=== PATIENT | female | born 1995 | race Caucasian/White ===

== ENCOUNTER 2017-03-06 00:36 | Observation (INO) | payer OTHER ==
[2017-03-06] MEDS ORDERED: NS 1,000 ML IV ONE (00:44)
[2017-03-06] MEDS ORDERED: ONDANSETRON 4 MG/2 ML VIAL IVP ONE (00:44)
--- NOTE | 2017-03-06 00:44 | EDPHY ---
H & P Stated Complaint: AP, n/v/d x 2 days. no recent travel or fever. HPI/ROS: HPI CHIEF COMPLAINT: Abdominal pain, nausea, vomiting, diarrhea HISTORY OF PRESENT ILLNESS: This patient 22-year-old female, presents emergency room nausea, vomiting, diarrhea and abdominal pain. Patient tells me that past 48 hours she has had increasing worsening sharp stabbing abdominal pain right lower quadrant periumbilical. At times radiates outward. She has associated nausea vomiting and diarrhea with this. Tells me that she had nausea and 1 episode of vomiting. Nonbilious. Nonbloody. Also has had 3-4 episodes of nonbloody diarrhea. Denies fever. Chest pain. Denies blood in her stool. Blood in her vomit. Acute emergency room today she could not sleep and had ongoing abdominal pain. Past Medical History: No medical history Past Surgical History: No surgical history Social History: Denies daily use of drugs alcohol tobacco products Family History: Noncontributory ROS REVIEW OF SYSTEMS: A comprehensive 10 point review of systems is otherwise negative aside from elements mentioned in the history of present illness. Exam Constitutional appears well nontoxic triage nursing summary reviewed, vital signs reviewed, awake/alert. Eyes normal conjunctivae and sclera, EOMI, PERRLA. HENT normal inspection, atraumatic, moist mucus membranes, no epistaxis, neck supple/ no meningismus, no raccoon eyes. Respiratory clear to auscultation bilaterally, normal breath sounds, no respiratory distress, no wheezing. Cardiovascular rate normal, regular rhythm, no murmur, no edema, distal pulses normal. Gastrointestinal soft, tender palpation periumbilical right lower quadrant, no peritoneal signs , no rebound, no guarding, normal bowel sounds, no distension, no pulsatile mass. Genitourinary no CVA tenderness. Musculoskeletal no midline vertebral tenderness, full range of motion, no calf swelling, no tenderness of extremities, no meningismus, good pulses, neurovascularly intact. Skin pink, warm, & dry, no rash, skin atraumatic. Neurologic awake, alert and oriented x 3, AAOx3, moves all 4 extremities equally, motor intact, sensory intact, CN II-XII intact, normal cerebellar, normal vision, normal speech. Psychiatric normal mood/affect. Heme/Lymph/Immune no lymphadenopathy. Differential diagnosis includes but is not limited to and in no particular order : Bowel obstruction, appendicitis, gallbladder disease, diverticulitis, colitis , enteritis, perforated viscus, gastritis, GERD, esophagitis, urinary tract infection, pyelonephritis, kidney stones Medical Decision Making: Plan for this patient IV establishment, IV fluids normal saline, IV Zofran for nausea, check abdominal blood work including lipase , LFTs, CT scan abdomen pelvis with IV contrast rule out acute appendicitis. Re-evaluation: CT scan of the abdomen pelvis with IV contrast The results of the study are shows free fluid pancreatic space, paracolic gutter no significant pelvic inflammation The study was read by Dr. Bruno.. I viewed the images myself on the PACS system. Normal appendix. 0221am: I DID REVIEW THIS PATIENT'S CT SCAN WITH THE PATIENT AND BLOOD WORK. SHE DOES TELL ME IT HURTS AFTER SHE DRINKS OR EATS. I DO THINK THAT SHE MAY HAVE A DUODENAL ULCER. I did talk to surgery Dr. Cooper's we discussed the case. Given that there is no free air in she does not peritoneal signs he does not feel that there is a surgical emergency. We did feel that this patient benefit from hospitalization with PPIs bowel rest IV fluids and GI to see. I will admit her to the hospitalist service given that she probably has duodenitis or duodenal ulcer. There is no evidence that this perforation given no free air. I updated the patient she is fine with this plan. I have ordered her another 0.5 mg IV Dilaudid, IV Protonix and IV famotidine. Patient does tell me that she has had Tequila this weekend multiple shots on March 04. But tells me that she has had nausea vomiting abdominal pain prior to this. She does tell me that hurts when she eats and drinks. Denies black tarry stools or vomiting blood. Denies blood in her stool. Given that she has edema around the duodenum and pancreas possible small amount of free fluid ongoing abdominal pain with nausea I will admit the patient for IV acids, and GI to see and evaluate. Dr. Marin has accepted. 0232AM: This time she appears well nontoxic afebrile vital signs are stable H& H are stable. Do not feel she has a surgical abdomen or any peritoneal signs. No indication for emergent surgery. However will need to be admitted for observation GI to see. Source: Patient - Personal History LMP (Females 10-55): 1-7 Days Ago Current Tetanus/Diphtheria Vaccine: Yes Current Tetanus Diphtheria and Acellular Pertussis (TDAP): Yes Tetanus Vaccine Date: 2015 - Medical/Surgical History Hx Asthma: No Hx Chronic Respiratory Disease: No Hx Diabetes: No Hx Cardiac Disease: No Hx Renal Disease: No Hx Cirrhosis: No Hx Alcoholism: No Hx HIV/AIDS: No Hx Splenectomy or Spleen Trauma: No Other PMH: hip surgeries x 7 - Social History Smoking Status: Never smoked Constitutional: Initial Vital Signs Temperature (C) 36.5 C 03/06/17 00:39 Heart Rate 85 03/06/17 00:39 Respiratory Rate 16 03/06/17 00:39 Blood Pressure 108/56 L 03/06/17 00:39 O2 Sat (%) 99 03/06/17 00:39 O2 Delivery Mode Room Air Allergies/Adverse Reactions: No Known Allergies Allergy (Unverified 03/06/17 00:39) Home Medications: Medication Instructions Recorded Chateal-28 Tablet 03/06/17 Medical Decision Making - Data Points Laboratory Results: Laboratory Results 03/06/17 01:00 03/06/17 01:00 03/06/17 03/06/17 03/06/17 01:00 01:00 01:00 WBC RBC Hgb Hct MCV MCH MCHC RDW Plt Count MPV Neut % (Auto) Lymph % (Auto) [place] % (Auto) Eos % (Auto) Baso % (Auto) Nucleat RBC Rel Count Absolute Neuts (auto) Absolute Lymphs (auto) Absolute Monos (auto) Absolute Eos (auto) Absolute Basos (auto) Absolute Nucleated RBC Immature Gran % Immature Gran # Sodium 144 mEq/L mEq/L (134-144) Potassium 3.9 mEq/L mEq/L (3.5-5.2) Chloride 110 mEq/L mEq/L (97-110) Carbon Dioxide 21 mEq/l L mEq/l (22-31) Anion Gap 13 mEq/L mEq/L (8-16) BUN 11 mg/dL mg/dL (7-23) Creatinine 0.9 mg/dL mg/dL (0.6-1.0) Estimated GFR > 60 Glucose 89 mg/dL mg/dL (70-100) Calcium 9.2 mg/dL mg/dL (8.5-10.4) Total Bilirubin 0.8 mg/dL mg/dL (0.1-1.4) Conjugated Bilirubin 0.3 mg/dL mg/dL (0.0-0.5) Unconjugated Bilirubin 0.5 mg/dL mg/dL (0.0-1.1) AST 23 IU/L IU/L (14-46) ALT 37 IU/L IU/L (9-52) Alkaline Phosphatase 54 IU/L IU/L (38-126) Total Protein 7.2 g/dL g/dL (6.3-8.2) Albumin 4.2 g/dL g/dL (3.5-5.0) Lipase 76.0 IU/L IU/L (23-300) Beta HCG, Qual NEGATIVE Urine Color YELLOW Urine Appearance HAZY Urine pH 6.0 (5.0-7.5) Ur Specific [place] 1.029 (1.002-1.030) Urine Protein NEGATIVE (NEGATIVE) Urine Ketones NEGATIVE (NEGATIVE) Urine Blood NEGATIVE (NEGATIVE) Urine Nitrate NEGATIVE (NEGATIVE) Urine Bilirubin NEGATIVE (NEGATIVE) Urine Urobilinogen 2.0 EU H EU (0.2-1.0) Ur Leukocyte Esterase 2+ H (NEGATIVE) Urine RBC 1-3 /hpf /hpf (0-3) Urine WBC 3-5 /hpf H /hpf (0-3) Ur Epithelial Cells TRACE /lpf /lpf (NONE-1+) Urine Bacteria TRACE /hpf H /hpf (NONE SEEN) Urine Mucus 2+ /lpf H /lpf (NONE-1+) Urine Glucose NEGATIVE (NEGATIVE) 03/06/17 01:00 WBC 12.82 10^3/uL H 10^3/uL (3.80-9.50) RBC 4.34 10^6/uL 10^6/uL (4.18-5.33) Hgb 13.0 g/dL g/dL (12.6-16.3) Hct 39.4 % % (38.0-47.0) MCV 90.8 fL fL (81.5-99.8) MCH 30.0 pg pg (27.9-34.1) MCHC 33.0 g/dL g/dL (32.4-36.7) RDW 12.3 % % (11.5-15.2) Plt Count 289 10^3/uL 10^3/uL (150-400) MPV 10.2 fL fL (8.7-11.7) Neut % (Auto) 74.0 % % (39.3-74.2) Lymph % (Auto) 17.5 % % (15.0-45.0) [place] % (Auto) 6.3 % % (4.5-13.0) Eos % (Auto) 1.3 % % (0.6-7.6) Baso % (Auto) 0.5 % % (0.3-1.7) Nucleat RBC Rel Count 0.0 % % (0.0-0.2) Absolute Neuts (auto) 9.49 10^3/uL H 10^3/uL (1.70-6.50) Absolute Lymphs (auto) 2.24 10^3/uL 10^3/uL (1.00-3.00) Absolute Monos (auto) 0.81 10^3/uL H 10^3/uL (0.30-0.80) Absolute Eos (auto) 0.17 10^3/uL 10^3/uL (0.03-0.40) Absolute Basos (auto) 0.06 10^3/uL 10^3/uL (0.02-0.10) Absolute Nucleated RBC 0.00 10^3/uL 10^3/uL (0-0.01) Immature Gran % 0.4 % % (0.0-1.1) Immature Gran # 0.05 10^3/uL 10^3/uL (0.00-0.10) Sodium Potassium Chloride Carbon Dioxide Anion Gap BUN Creatinine Estimated GFR Glucose Calcium Total Bilirubin Conjugated Bilirubin Unconjugated Bilirubin AST ALT Alkaline Phosphatase Total Protein Albumin Lipase Beta HCG, Qual Urine Color Urine Appearance Urine pH Ur Specific [place] Urine Protein Urine Ketones Urine Blood Urine Nitrate Urine Bilirubin Urine Urobilinogen Ur Leukocyte Esterase Urine RBC Urine WBC Ur Epithelial Cells Urine Bacteria Urine Mucus Urine Glucose Medications Given: Discontinued Medications Hydromorphone HCl (Dilaudid) 0.5 mg IVP EDNOW ONE Stop: 03/06/17 00:54 Last Admin: 03/06/17 01:11 Dose: 0.5 mg Sodium Chloride (Ns) 1,000 mls @ 0 mls/hr IV ONCE ONE; Wide Open PRN Reason: Protocol Stop: 03/06/17 00:45 Last Admin: 03/06/17 01:05 Dose: 1,000 mls Ondansetron HCl (Zofran) 4 mg IVP EDNOW ONE Stop: 03/06/17 00:45 Last Admin: 03/06/17 01:09 Dose: 4 mg Departure - Departure Disposition: [facility] Inpatient Acute Clinical Impression: Vomiting and diarrhea, Duodenitis Condition: Fair Instructions: Acute Nausea and Vomiting (ED) Referrals: Latia LASSITER [Other] - As per Instructions
[2017-03-06] MEDS ORDERED: HYDROmorphONE/DILAUDID 1 MG/ML SYR IVP ONE (00:53)
[2017-03-06 01:15] LABS: % IMMATURE GRANULYOCYTES 0.4 % (0.0-1.1); ABSOLUTE IMMATURE GRANULOCYTES 0.05 10^3/uL (0.00-0.10); ADD DIFF? NO; ADD MORPH? NO; ADD SCAN? NO; ATYPICAL LYMPHOCYTE FLAG 10 (0-99); FRAGMENT RBC FLAG 0 (0-99); HEMATOCRIT 39.4 % (38.0-47.0); LEFT SHIFT FLG 10 (0-99); LIPEMIA HEMOLYSIS FLAG 80 (0-99); MEAN CELL VOLUME 90.8 fL (81.5-99.8); MEAN PLATELET VOLUME 10.2 fL (8.7-11.7); PLATELET CLUMPS FLAG 0 (0-99); PLATELET COUNT 289 10^3/uL (150-400); RED BLOOD CELL COUNT 4.34 10^6/uL (4.18-5.33); RED CELL DISTRIBUTION WIDTH 12.3 % (11.5-15.2)
[2017-03-06] MEDS ORDERED: IOPAMIDOL (ISOVUE-300) 100 ML BTL ONE (01:27)
[2017-03-06 01:35] LABS: COLOR YELLOW; LEUKOCYTE ESTERASE,URINE 2+ (NEGATIVE); NITRITE,URINE NEGATIVE (NEGATIVE)
[2017-03-06 01:36] LABS: ALANINE AMINOTRANSFERASE 37 IU/L (9-52); ALBUMIN 4.2 g/dL (3.5-5.0); ALKALINE PHOSPHATASE 54 IU/L (38-126); ANION GAP 13 mEq/L (8-16); ASPARTATE AMINOTRANSFERASE 23 IU/L (14-46); BILIRUBIN,TOTAL 0.8 mg/dL (0.1-1.4); BILIRUBIN-CONJUGATED 0.3 mg/dL (0.0-0.5); BILIRUBIN-UNCONJUGATED 0.5 mg/dL (0.0-1.1); CALCIUM 9.2 mg/dL (8.5-10.4); CARBON DIOXIDE 21 mEq/l (22-31); CHLORIDE 110 mEq/L (97-110); CREATININE 0.9 mg/dL (0.6-1.0); GLOMERULAR FILTRATION RATE > 60; GLUCOSE 89 mg/dL (70-100); POTASSIUM 3.9 mEq/L (3.5-5.2); SODIUM 144 mEq/L (134-144); TOTAL PROTEIN 7.2 g/dL (6.3-8.2)
[2017-03-06 01:37] LABS: BACTERIA TRACE /hpf (NONE SEEN); MUCUS 2+ /lpf (NONE-1+)
[2017-03-06] MEDS ORDERED: PANTOPRAZOLE SODIUM 40 MG in NS 100 ML IV ONE (02:17)
[2017-03-06] MEDS ORDERED: FAMOTIDINE 20 MG/NACL 50 ML IV ONE (02:18)
[2017-03-06] MEDS ORDERED: ONDANSETRON 4 MG/2 ML VIAL IVP PRN (02:53)
[2017-03-06] MEDS ORDERED: ACETAMINOPHEN 325 MG TAB PO PRN (02:53)
[2017-03-06] MEDS ORDERED: MAG HYDROX/AL HYDROX/SIMETH 30 ML UDCUP PO ONE (02:54)
[2017-03-06] MEDS ORDERED: LIDOCAINE 2% VISCOUS 15 ML UDCUP PO ONE (02:54)
[2017-03-06] MEDS: ONDANSETRON DISINTEGRATING 4 MG TAB PO PRN (03:35)
--- NOTE | 2017-03-06 03:57 | GHP ---
[f rep st] HISTORY AND PHYSICAL DATE OF ADMISSION: 03/06/2017 CHIEF COMPLAINT: Abdominal pain. No nausea, vomiting, diarrhea. HISTORY OF PRESENT ILLNESS: Patient is a 22-year-old female with no past medical history, presentin with nausea, vomiting, diarrhea, and abdominal pain. Pain initially started 48 hours ago in the l ower epigastric region. She described it as being sharp. Last night she had 2 episodes of nonblood y emesis along with some loose stools. She had a few more loose bowel movements today. She denies fevers, chills, or sweats. No blood in the stool. She denies NSAID use. On March 04 she had 4-5 s hots of Tequila and says that she normally does not drink that much. She did not eat any an unusual foods for her over the last couple days. Denies ill contacts. Patient denies urinary frequency or dysuria. REVIEW OF SYSTEMS: I completed a 10-point review of systems, negative except as noted in HPI. PAST MEDICAL HISTORY: None. PAST SURGICAL HISTORY: Bilateral hip surgery secondary to soccer injuries. SOCIAL HISTORY: Is a sophomore at . Denies tobacco or drugs. Drank 4-5 shots on March 04. Jose es heavy alcohol use at baseline. FAMILY HISTORY: Diabetes on mother's side. MEDICATIONS: control. No NSAIDs. ALLERGIES: None. PHYSICAL EXAMINATION: VITAL SIGNS: Temp 36.4, blood pressure 107/54, heart rate 80, respirations 1 6, 95% on room air. GENERAL: Lying in bed, no acute distress. Mildly fatigued. HEENT: PERRLA. EOMI. Oropharynx clear. CV: Regular rate and rhythm. No murmurs, gallops, or rubs. LUNGS: Shelia r to auscultation bilaterally. ABDOMEN: Soft, nondistended, diffuse tender throughout but more so in the epigastric region. No rebound or guarding. Quiet bowel sounds. : No suprapubic tenderne ss. MUSCULOSKELETAL: 5/5 upper and lower extremity strength. NEURO: 2 through 12 intact. PSYCH: Alert and oriented x3. LABS: WBCs 12, hemoglobin 13, hematocrit 39, platelets 289. Sodium 141, potassium 3.9, chloride 11 0, carbon dioxide 21, BUN 11, creatinine 0.9, glucose 89. LFTs within normal. Lipase 76. Urine +2 leukocytes, 3-5 WBCs, trace bacteria. CT, free fluids adjacent to pancreatic head and descending duodenum and in the pelvis. Subtle enlar gement and edema in the uncinate process of the pancreatic head. Shotty celiac nodes, normal append ix. ASSESSMENT AND PLAN: 1. Acute abdominal pain/nausea and vomiting: Differential includes infectious versus gastritis. N egative test. No abscess noted on CT. There is evidence of duodenitis. Dr. Rosy scales e with Dr. Tavares with Surgery who reviewed imaging and notes that there is no free air and that free fluid is more stranding around the pancreatic head and duodenum. Will trial a GI cocktail. Place o n Protonix. Can speak with GI in the morning for any further recommendations or intervention. 2. Leukocytosis: Mildly elevated. She is afebrile. No evidence of abscess on imaging. She had a couple loose stools. No sandra diarrhea. No recent antibiotics. 3. Pyuria: Denies dysuria or urinary frequency. Will check culture, hold off on antibiotics at th is point. 4. Diet: N.p.o. IV fluids. 5. DVT prophylaxis: Low risk. DISPOSITION: Patient warrants observation admission given acute abdominal pain with evidence of duo denitis on imaging. Will monitor overnight and consult with GI in the morning. /[id number]/MODL
[2017-03-06] MEDS: NS 1,000 ML IV SCH ×3 (04:50→20:28)
[2017-03-06] MEDS: PANTOPRAZOLE SODIUM 40 MG in NS 100 ML IV SCH ×2 (10:24→20:26)
--- NOTE | 2017-03-06 14:12 | HOSPPROG ---
Hospitalist Progress Note Assessment/Plan: # acute gastroenteritis- patient presenting with abdominal pain nausea vomiting - reports loose stools at home Symptoms mildly improved overnight with IV fluids and supportive care CT abdomen(personally reviewed and interpreted) shows duodenitis - stool studies ordered to rule out infectious etiology - continue IV fluids - continue IV antiemetics - advance diet as patient tolerates # nausea vomiting- as above suspect secondary to duodenitis seen on CT - continue supportive care # acute leukocytosis presumed secondary to viral gastroenteritis- oxygen saturations 95% on room air - recheck in a.m. # pyuria- urine culture sent and pending # prophylaxis Lovenox # diet NPO can advance as tolerates # disposition greater than 2 midnights as the patient is presenting unable to tolerate p.o. requiring IV fluids and antiemetics No discussed the case with the admitting physician agree with sending stool analysis to rule out bacterial pathogens Subjective: Pain persists Objective: Vital Signs Temp Pulse Resp BP Pulse Ox 36.8 C 79 16 91/46 L 98 03/06/17 08:03 03/06/17 11:43 03/06/17 11:43 03/06/17 11:43 03/06/17 11:43 03/05/17 03/06/17 03/07/17 05:59 05:59 05:59 Intake Total 1300 Balance 1300 - Physical Exam Constitutional: appears nourished Eyes: anicteric sclera Ears, Nose, Mouth, Throat: dry mucous membranes Cardiovascular: regular rate and rhythym Respiratory: no respiratory distress, no rales or rhonchi Gastrointestinal: normoactive bowel sounds, soft, non-tender abdomen Genitourinary: no bladder fullness Skin: warm, normal color Musculoskeletal: No asymmetric calves Neurologic: AAOx3 Psychiatric: interacting appropriately, not anxious Lymph, Heme, Immunologic: no cervical LAD ICD10 Worksheet Patient Problems: Problems Problem Status Onset Duodenitis Acute Vomiting and diarrhea Acute
[2017-03-06] MEDS: HYDROmorphONE/DILAUDID 1 MG/ML SYR IVP PRN (22:25)
[2017-03-07 04:35] LABS: HEMOGLOBIN 10.2 g/dL (12.6-16.3); MEAN CELL HEMOGLOBIN 30.5 pg (27.9-34.1); MEAN CELL HEMOGLOBIN CONCENTR. 32.9 g/dL (32.4-36.7); MEAN CELL VOLUME 92.8 fL (81.5-99.8); RED BLOOD CELL COUNT 3.34 10^6/uL (4.18-5.33); RED CELL DISTRIBUTION WIDTH 12.3 % (11.5-15.2)
[2017-03-07] MEDS: HYDROmorphONE/DILAUDID 1 MG/ML SYR IVP PRN (06:16)
[2017-03-07 07:06] VITALS: RESP 16
[2017-03-07] MEDS: PANTOPRAZOLE SODIUM 40 MG in NS 100 ML IV SCH (08:21)
[2017-03-07] MEDS ORDERED: LEVONORGESTREL ETHIN ESTRADIOL PO SCH (09:00)
[2017-03-07 11:01] VITALS: BP 94/44; PULSE 80; TEMP 97.8; O2SAT 96
[2017-03-07] MEDS: ONDANSETRON DISINTEGRATING 4 MG TAB PO PRN (12:28)
--- NOTE | 2017-03-07 13:51 | GDS ---
[f rep st] DISCHARGE SUMMARY DISCHARGE DIAGNOSES: Include: 1. Acute presumed viral duodenitis. 2. Dyspepsia. 3. Acute leukocytosis secondary to viral gastroenteritis. HISTORY OF PRESENT ILLNESS: A 22-year-old female who presents with abdominal pain, nausea, vomiting . CONSULTATIVE SERVICES: None. PROCEDURES: Patient had a CT of the abdomen that showed duodenal inflammation consistent with duode nitis with a query of a duodenal ulcer and a query of pancreatitis in the adjacent pancreatic tissue . HOSPITAL COURSE BY ISSUE: 1. Acute presumed viral gastroenteritis. Patient did not pass loose stools during this hospital st ay to send for a pathogen analysis on PCR. Received supportive care with IV fluids and antiemetics and had improvement in her symptoms. On the day of disposition, she is tolerating a regular diet. We will discharge her on oral PPI. Her H. pylori testing has been negative in the hospital, and she is to follow with a to be established outpatient provider for ongoing monitoring of her abdominal p ain and nausea. The patient has not required nausea medications in over 12 hours and believes her p ain is controllable with Tylenol alone. 2. Acute leukocytosis presumed secondary to viral gastroenteritis. White count improved from 13 to 10 on the day of disposition. MEDICATIONS AT THE TIME OF DISPOSITION: Please reference the med rec printed on 03/07/2017. PENDING STUDIES: At the time of this dictation are none. FOLLOWUP APPOINTMENTS: Include with a to be established primary care provider for post disposition followup. I spent greater than 30 minutes in the planning and coordination of this discharge. /[id number]/MODL
== END 2017-03-07 13:37 | disposition home or self-care (01) ==
LOC: INTOOBSV 02:30 → F1N 03:52
PROVIDERS: ADMIT Internal Medicine; ATTEND Hospitalist
DX: K29.80 Duodenitis without bleeding (principal); K52.9 Noninfective gastroenteritis and colitis, unspecified; D72.829 Elevated white blood cell count, unspecified
CPT/HCPCS: 74177; 96361; 96365; 96375; G0378; J1170; J2405; Q9967